=== PATIENT | male | born 1985 | race Caucasian/White ===

== ENCOUNTER 2018-08-03 23:48 | Emergency (ER) | payer MEDICAID, OTHER ==
--- NOTE | 2018-08-04 00:19 | ED PDOC ---
HPI: Psych/Substance Abuse Time Seen by Provider: 08/04/18 00:05 Chief Complaint (Nursing): Psychiatric Evaluation Chief Complaint (Provider): Psychiatric Evaluation ED Caveat: Intoxicated History Per: Patient History/Exam Limitations: intoxication Additional Complaint(s): 33 years old male brought in by EMS for alcohol intoxication and aggressive behavior. Patient is noncompliant with his psychiatric medications. Unable to obtain history due to intoxication. PMD: None provided Past Medical History Reviewed: Historical Data, Nursing Documentation, Vital Signs Vital Signs: Last Vital Signs Temp 98.5 F 08/04/18 00:05 Pulse 116 H 08/04/18 00:05 Resp 18 08/04/18 00:05 BP 146/77 08/04/18 00:05 Pulse Ox 146 H 08/04/18 00:05 Primary Care Provider: Procedure,Nonphys - Medical History PMH: Denies: Diabetes, Hepatitis, HIV, HTN, Seizures, Sexually Transmitted Disease - Surgical History Surgical History: No Surg Hx - Family History Family History: States: Unknown Family Hx - Immunization History Hx Tetanus Toxoid Vaccination: No (unknown) Hx Influenza Vaccination: No Hx Pneumococcal Vaccination: No - Home Medications Home Medications: Ambulatory Orders Medication Instructions Recorded Acetaminophen/Oxycodone Hydr 1 tab PO Q6H PRN #10 tab 01/30/13 [Percocet 325 mg-5 mg] Ritalin 01/30/13 - Allergies Allergies/Adverse Reactions: Allergies Allergy/AdvReac Type Severity Reaction Status Date / Time No Known Allergies Allergy Unverified 01/30/13 02:03 Review of Systems Review Of Systems: ROS cannot be obtained secondary to pt's inabilty to answer questions. Physical Exam - Reviewed Nursing Documentation Reviewed: Yes Vital Signs Reviewed: Yes - Physical Exam Appears: Positive for: No Acute Distress Head Exam: Positive for: ATRAUMATIC, NORMOCEPHALIC Skin: Positive for: Normal Color, Warm, Dry Eye Exam: Positive for: Normal appearance, EOMI, PERRL Neck: Positive for: Normal, Painless ROM, Supple Cardiovascular/Chest: Positive for: Regular Rate, Rhythm. Negative for: Murmur Respiratory: Positive for: Normal Breath Sounds. Negative for: Wheezing Gastrointestinal/Abdominal: Positive for: Normal Exam, Soft. Negative for: Tenderness Extremity: Positive for: Normal ROM. Negative for: Pedal Edema, Swelling Neurological/Psych: Positive for: Awake, Alert, Oriented (x3), Other (Slurred speech) - Laboratory Results Result Diagrams: 08/04/18 00:31 08/04/18 00:31 - ECG O2 Sat by Pulse Oximetry: 146 (RA) Pulse Ox Interpretation: Abnormal Medical Decision Making Medical Decision Making: Time: 11 Initial impression: 33 years old intoxicated male --Alcohol serum --CMP --Drug screen --Urine dipstick --Urinalysis --Crisis evaluation 0200 Patient evaluated by crisis, stable for discharge. Scribe Attestation: Documented by Roxy Mesa acting as a scribe for Kenji Johnson MD. Provider Scribe Attestation: All medical record entries made by the Scribe were at my direction and personally dictated by me. I have reviewed the chart and agree that the record accurately reflects my personal performance of the history, physical exam, medical decision making, and the department course for this patient. I have also personally directed, reviewed, and agree with the discharge instructions and disposition. Disposition - Clinical Impression Clinical Impression: Bipolar disorder - Patient ED Disposition Is Patient to be Admitted: No - Disposition Disposition: Routine/Home Disposition Time: 02:00 Condition: STABLE Instructions: Bipolar Disorder Forms: [employer] [facility] ([place])
[2018-08-04 00:34] LABS: BASO # 0.1 K/uL (0.0-0.2); BASO % 0.9 % (0.0-2.0); EOS # 0.1 K/uL (0.0-0.7); EOS % 1.5 % (0.0-4.0); HEMOGLOBIN 15.4 g/dL (12.0-18.0); LYMPH % 27.2 % (20.0-40.0); MEAN CELL VOLUME 88.6 fl (80.0-94.0); MEAN CORPUSCULAR HEMOGLOBIN 30.3 pg (27.0-31.0); MEAN CORPUSCULAR HGB CONC 34.2 g/dL (33.0-37.0); MEAN PLATELET VOLUME 7.6 fl (7.2-11.7); MONO # 0.4 K/uL (0.0-0.8); MONO % 5.3 % (0.0-10.0); NEUT # 4.7 K/uL (1.8-7.0); NEUT % 65.1 % (50.0-75.0); NRBC % 0.1 % (0.0-0.0); RBC 5.1 Mil/uL (4.40-5.90); WHITE BLOOD COUNT 7.3 K/uL (4.8-10.8)
[2018-08-04 00:45] LABS: ALB/GLOB RATIO 1.7 (1.0-2.1); ALBUMIN 4.7 g/dL (3.5-5.0); ALT/SGPT 36 U/L (21-72); AST/SGOT 53 U/L (17-59); BLOOD UREA NITROGEN 12 mg/dl (9-20); GFR NON-AFRICAN AMERICAN > 60
[2018-08-04 06:41] VITALS: BP 132/72; PULSE 96; RESP 22; TEMP 98.2; O2SAT 100
== END 2018-08-04 06:20 | disposition home or self-care (01) ==
LOC: H.ER 23:48
DX: F31.9 Bipolar disorder, unspecified (principal); Z86.59 Personal history of other mental and behavioral disorders; Z91.14 Patient's other noncompliance with medication regimen; F10.129 Alcohol abuse with intoxication, unspecified; Y90.6 Blood alcohol level of 120-199 mg/100 ml; Z00.8 Encounter for other general examination